=== PATIENT | male | born 1950 | race Caucasian/White ===

== ENCOUNTER 2025-01-07 13:47 | Inpatient (IN) | payer OTHER, SELFPAY ==
[2025-01-07] VITALS (7 sets, daily range): BP systolic 105–174; BP diastolic 73–119; BMI 27.8; BMI 27.4
--- NOTE | 2025-01-07 08:34 | ED.GENMED ---
History of Present Illness
General
Chief Complaint: Breathing Problem
Source: patient
Exam Limitations: none
Time Seen by Provider: 01/07/25 08:16
History of Present Illness
History of Present Illness:
See MDM
Past History
Past History
ED Past Medical History: None
ED Past Surgical History: None
Social History
Tobacco: Former smoker
Alcohol: None
Phy Exam
Physical Exam
Physical Exam:
See MDM
Scores
Heart Failure Risk
Heart Failure Risk Score: Not Applicable
Course
Orders/Labs/Results
Orders:
Orders
01/07/25 07:54
EKG [Electrocardiogram (*1)] Urgent
Reason for Study: Shortness of Breath
01/07/25 07:55
EKG- Treatment ONCE
01/07/25 08:34
CT Chest PE Study Urgent
Comment:
Reason For Exam: SOB, R leg swelling
US Periph Venous LOWER Ext RT Urgent
Comment:
Reason For Exam: R calf swelling and pain
01/07/25 08:37
Complete Blood Count/With Diff Urgent
Comprehensive Metabolic Panel Urgent
NT-proBNP Urgent
PTT Urgent
Prothrombin Time Urgent
Troponin I Urgent
Abnormal Lab Results
01/07/25
08:37
RBC 3.58 L 10^6/uL
(4.70-6.10)
Hgb 11.2 L g/dL
(13.0-18.0)
Hct 32.7 L %
(39.0-52.0)
MCH 31.3 H pg
(27.0-31.0)
Sodium 133 L mmol/L
(135-145)
Chloride 108 H mmol/L
(98-107)
Carbon Dioxide 19 L mmol/L
(22-30)
Glucose 119 H mg/dl
(70-99)
Total Bilirubin 1.4 H mg/dl
(0.2-1.3)
Total Protein 6.0 L g/dl
(6.3-8.2)
Albumin 3.3 L g/dl
(3.5-5.0)
01/07/25 08:37
01/07/25 08:37
Vital Signs
Initial and Last Documented VS:
Initial Vital Signs
Temp Pulse Resp Pulse Ox
98.6 F 63 20 100
01/07/25 07:49 01/07/25 07:49 01/07/25 07:49 01/07/25 07:49
Last Documented Vital Signs
Temp Pulse Resp BP Pulse Ox
98.6 F 77 18 145/96 100
01/07/25 07:49 01/07/25 10:42 01/07/25 10:42 01/07/25 10:42 01/07/25 10:42
MDM/Problems Addressed
Differential Diagnosis Includes:
HPI and MDM Narrative:
74-year-old male presenting with shortness of breath with exertion. This has been ongoing for the past 2 weeks or so. This was preceded by over a swelling and skin changes to his right leg. He noted that his right calf and foot have become
purple. It is mildly uncomfortable. He is denying any chest pain at rest and denies shortness of breath lying flat.
On exam, patient has significant right calf the skin is hard and pulses are nonpalpable. However, the distal foot is warm. The DP pulse is auscultated by Doppler
Given his history, will obtain CT PE rule out ultrasound rule out PE. I suspect the patient will require admission regardless given his exertional symptoms. Initial EKG is nonischemic
Physical exam
General: Well appearing and non-toxic
HEENT: protecting airway
Neck: appears supple
CV: No evidence of cyanosis. Regular rate and rhythm
Resp: No accessory muscle use. Lungs clear
Abd: Non-distended
Extremities: Edema and ecchymotic skin changes to the right calf and right foot. DP pulses +2 to right foot with use of
Neuro: alert
Psych: Normal affect
Skin: Venous stasis to right calf
Problems Addressed including Acute and Chronic Conditions affecting care:
1. Right calf swelling and pain
Acuity: acute
Prognosis: stable
Details: Pulses intact. Will obtain ultrasound rule out DVT
2. Shortness of breath with exertion
Acuity: acute
Prognosis: stable
Details: EKG without ischemic changes. Will obtain troponin and BNP. Will obtain CT to rule out PE
Updates
Ultrasound negative for DVT. CT shows no evidence of PE but there is concern for emphysematous changes. Unsure if his symptoms are cardiac related. His BNP is elevated no pulmonary edema noted. Troponin is negative. Will admit for further workup
Differential Diagnosis (but not limited to): Acute coronary syndrome, pulmonary embolism, DVT
Testing considered: Chest x-ray
Drug therapy (if applicable): OTC meds, please see d/c instruction regarding Rx drugs
Amount and/or Complexity of Data Reviewed
Clinical info obtained from: Patient
External data reviewed: N/A
Labs I independently reviewed (but not limited to): Troponin normal, BNP elevated
Radiology: The CT scan was personally and independently reviewed. In addition, official CT report reviewed.
Pulse Ox: not hypoxic
EKG independently reviewed: Sinus rhythm, normal axis, no STEMI
Material Handler 2Nd Shift: Sinus rhythm
Critical Care: N/A
Risk of Complication:
Social Determinants of health: Good social support
Discussed with other providers: Hospitalist
Escalation of Care includes Admit/Obs: Given exertional dyspnea, will admit for further workup
Occasional wrong word or 'sound a like' substitutions may have occurred due to the inherent limitations of voice recognition software. Read the chart carefully and recognize, using context, where substitutions have occurred.
*Pulse Oximetry
SaO2: 100
Oxygen Mode of Delivery: Room air
Patient hypoxic: no
*Critical Care Note
Total Time (30-74mins, 75-104mins- exclusive of procedures): Not Applicable
ED Attending Note
-
Portions of this chart may have been created with voice recognition software.� Occasional wrong word or��sound alike� substitutions may have occurred due to the inherent limitations of voice recognition software.
Discharge Plan
Departure
Patient Disposition: Admit
Date of Disposition: 01/07/25
Time of Disposition: 12:37
Admit to: Med/Surg
Presentation/result/management discussed w/ accepting MD/DO: Hospitalist
Discharge Problem:
Exertional dyspnea
Prescriptions:
No Action
No Current Medications
0
Referrals:
NONE,* [Family Provider, Internal Medicine]
Interventions
Interventions:
*Risk Screen - Suicide Last Done: 01/07/25 07:49
*General Assessment Last Done: 01/07/25 08:41
*Neglect/Abuse Screening Last Done: 01/07/25 07:49
*ED- Fall Risk Assessment Last Done: 01/07/25 08:41
*ED COVID-19 Vaccine History Last Done: 01/07/25 08:41
ED- Cardiac Assessment Last Done: 01/07/25 08:47
ED- Pulmonary Assessment Last Done: 01/07/25 08:47
ED-Skin Assessment Last Done: 01/07/25 08:47
Discharge Date and Time
Print Language: COMORAN
[2025-01-07 08:50] LABS: Hematocrit 32.7 % (39.0-52.0); Hemoglobin 11.2 g/dL (13.0-18.0); Mean Corp Hgb Conc. 34.3 g/dL (33.0-37.0); Mean Corpuscular Volume 91.3 fL (80.0-94.0); Nucleated Red Blood Cells % 0 % (-); Platelet Count 242 10^3/uL (130-400); Red Cell Dist. Width 13.8 % (11.5-14.5)
[2025-01-07 09:05] LABS: INR 1.09; PT 14.6 Sec (11.4-14.6)
[2025-01-07 09:06] LABS: APTT 34.8 Sec (23.4-35.0)
[2025-01-07 09:16] LABS: Troponin I < 0.012 ng/ml
[2025-01-07 09:22] LABS: ALT (SGPT) 18 U/L (0-50); AST (SGOT) 20 U/L (17-59); Albumin 3.3 g/dl (3.5-5.0); Alkaline Phosphatase 81 U/L (38-126); Blood Urea Nitrogen 12 mg/dl (9-20); Calcium 8.7 mg/dl (8.4-10.2); Carbon Dioxide 19 mmol/L (22-30); Chloride 108 mmol/L (98-107); Estimated Creatinine Clearance 80 ml/min; Glucose 119 mg/dl (70-99); Potassium 4.6 mmol/L (3.5-5.1); Sodium 133 mmol/L (135-145); Total Protein 6.0 g/dl (6.3-8.2); eGFR > 60.00
--- NOTE | 2025-01-07 12:48 | HPS.HSE ---
Family Physician
-
Family Physician: * NONE
Chief Complaint
-
SOB/LARSON
BL LE edema
RLE erythema
History of Present Illness
HPI: 74-year-old male, no known past medical history as he does not see a PCP, presented with shortness of breath and dyspnea on exertion for 2 weeks. He also has BL LE edema with RLE erythema ongoing for 1 month.
In the ED, he was evaluated for right leg DVT and PE; VTE was ruled out.
Admitted for likely acute CHF, unclear type
Medical History
Past Medical History
Past Medical History: Reports Other
Additional Past Medical History:
unknown as pt does not see PCP
Past Surgical History: Reports Other
Additional Past Surgical History:
?R leg skin graft
Social History
Tobacco: Former Smoker (quit a few months ago)
Alcohol: Daily (4-5 cans of beer per pt)
Personal:
Living: With Family
Family History
Family History: Not pertinent
Allergies / Home Medications
Allergies reflects when Allergies were last updated in [facility].
Home Medications with original date entered in [facility]
Allergy/Medication List:
Allergies
Allergy/AdvReac Type Severity Reaction Status Date / Time
No Known Allergies Allergy Unverified 01/07/25 07:49
Home Medications
No Meds [No Current Medications] 01/07/25
Review of Systems
-
Respiratory: Reports See HPI and Trouble Breathing (LARSON)
Skin: Reports Rash (R leg for 1 month)
Physical Exam
Vital Signs
Vital Signs
Temp Pulse Resp BP Pulse Ox
37.0 C 77 18 145/96 100
01/07/25 07:49 01/07/25 10:42 01/07/25 10:42 01/07/25 10:42 01/07/25 10:42
Physical Exam
General: Well Developed, Well Nourished, No Apparent Distress, Comfortable and Conversant
HEENT: NormoCephalic, Moist mucous membranes and Atraumatic
Respiratory: Clear and Non Labored Respirations; No Accessory Resp Muscle Use
Cardiac: S1/S2 and Regular Rhythm; No Murmur or Rub
GI: Soft, Non Tender, Non Distended and Normal Bowel Sounds; No Organomegaly
Rectal: Deferred by Provider
Musculoskeletal: No Clubbing, No Cyanosis, Edema, Left Lower Extremity and Edema, Right Lower Extremity
Skin: Warm and Rash (RLE)
Neuro: Awake and Alert
Psych: Calm and Intact Judgment/Insight
Laboratory Results
-
01/07/25 08:37
01/07/25 08:37
Laboratory Results
PT 14.6 Sec (11.4-14.6) 01/07/25 08:37
INR 1.09 01/07/25 08:37
APTT 34.8 Sec (23.4-35.0) 01/07/25 08:37
Total Bilirubin 1.4 mg/dl (0.2-1.3) H 01/07/25 08:37
AST 20 U/L (17-59) 01/07/25 08:37
ALT 18 U/L (0-50) 01/07/25 08:37
Alkaline Phosphatase 81 U/L (38-126) 01/07/25 08:37
Troponin I < 0.012 ng/ml 01/07/25 08:37
Data Reviewed
-
CT Scan: Report Reviewed by me
Ultrasound: Report Reviewed by me
Lab Data: Labs Reviewed by me
Impression/Plan
-
HPI: 74-year-old male, no known past medical history as he does not see a PCP, presented with shortness of breath and dyspnea on exertion for 2 weeks. He also has BL LE edema with RLE erythema ongoing for 1 month.
In the ED, he was evaluated for right leg DVT and PE; VTE was ruled out.
Admitted for likely acute CHF, unclear type
A/P:
# Likely acute CHF, unclear type
proBNP 1400, troponin negative
Start IV Lasix 40 mg daily
Check echo
Cardiology consult
# Right leg erythema, ?chronic venous dermatosis
ID CS
Wound care consult
Right lower extremity DVT ruled out on ultrasound
Not able to appreciate R dorsalis pedis pulse, check RLE arterial US
# Mild hyponatremia
Sodium level 133, continue to monitor
DVT ppx: Lovenox SQ
FC
--- NOTE | 2025-01-07 13:12 | CM ---
Patient seen in ED with neighbor present. Patient states that he lives with his and 2 sons. Patient is primary caregiver for s/p CVA. Patient stated they live in a 2 story home and he has no DME at home for himself. Patient works as
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 [facility] [address] In [place] and has no PCP at this time. Patient has not been in the hospital for 'decades'. Patient is thinking about going to his son or his 's PCP but has
not yet made appointment. Patient plan is for discharge home with no needs at this time. CM will continue to follow for discharge planning needs.
Plan; home with family watch for VN needs/ will need PCP at discharge.
--- NOTE | 2025-01-07 13:54 | CON.ID ---
Consultation
-
Date/Time Consultation Requested: 01/07/2025 1300
Date/Time Consultation Performed: 01/07/2025 1308
Requesting Provider: Dr. Devlin
Performing Provider: Dr. Jacobo
Reason for Consultation: Right lower extremity edema and discoloration
Chief Complaint / Past History
History of Present Illness
Joey Gunter is a 74-year-old man being evaluated at the request of Dr. Koenig in regards to right lower extremity swelling and discoloration. History is obtained from chart review, along with patient interview.
The patient denies any prior significant medical history, and reports that he rarely, if ever, sees a physician. He notes that approximately 1-1/2 months ago (or possibly longer) he started to develop some soreness and swelling on his right lower
extremity. Over that same time he has noted that it is grown progressively more dark in color. He denies any trauma to the leg. He denies any fevers or chills. He denies any groin pain or erythema spreading up his medial thigh. He notes a
throbbing pain in the leg, especially when dependent. He reports occasional shortness of breath, which has been slightly worse over the past 2 weeks.
Past History
Past Medical History: None
Past Surgical History: None
Allergy History:
No Known Allergies Allergy (Unverified 01/07/25 07:49)
Medications Reviewed: Yes
Current Antibiotics:
None
Social History
Tobacco: Former Smoker ([id number])
Alcohol: Daily (4 beers)
Drug: None
Personal:
Living: With Family
Employment: Employed
Family History
Family History: Not Pertinent
Review of Systems
Vital Signs
Temp Pulse Resp BP Pulse Ox
98.6 F 73 25 145/96 99
01/07/25 07:49 01/07/25 13:30 01/07/25 13:30 01/07/25 10:42 01/07/25 13:30
Physical Exam
Physical Exam
Constitutional: No Acute Distress, Comfortable, Chronically Ill and Non-toxic
Head: Normocephalic
Eyes: Pupils Equal, Pupils Round, No Conjunctival Hemorrhage and Sclera Anicteric
Oral: Poor Dentition, No Thrush and No Ulcers
Lymph Nodes: Negative Lymphadenopathy
Cardiovascular: Regular Rate and S1/S2; Negative S3/S4 or Murmur
Pulmonary: Clear; Negative Wheezes, Rales or Rhonchi
Gastrointestinal: Soft, Non Tender, Non Distended, Normal Bowel Sounds, No Rebound and No Guarding
Extremities: Other (Right leg with dark erythema and mild warmth from toes to knee area. No actual knee effusion. Edema is tense.)
Skin: Warm and Dry; Negative Rash or Jaundice
Neurological: Awake and Alert
Psychological: Calm
.
Lab / Diagnostic Study Results
01/07/25 08:37
01/07/25 08:37
Abs Immat Gran (auto) 0.0 10^3/uL (0-0.05) 01/07/25 08:37
Absolute Neuts (auto) 3.9 10^3/uL (1.4-6.5) 01/07/25 08:37
Absolute Lymphs (auto) 1.3 10^3/uL (1.2-3.4) 01/07/25 08:37
Absolute Monos (auto) 0.4 10^3/uL (0.1-0.6) 01/07/25 08:37
Absolute Basos (auto) 0.0 10^3/uL (0-0.2) 01/07/25 08:37
Immature Gran % 0.5 % (0-0.5) 01/07/25 08:37
Neutrophils % 68.1 % (42.2-75.2) 01/07/25 08:37
Lymphocytes % 22.7 % (20.5-51.1) 01/07/25 08:37
Monocytes % 6.3 % (1.7-9.3) 01/07/25 08:37
Eosinophils % 1.9 % (0-6) 01/07/25 08:37
Basophils % 0.5 % (0-2) 01/07/25 08:37
PT 14.6 Sec (11.4-14.6) 01/07/25 08:37
INR 1.09 01/07/25 08:37
Microbiology Results
Imaging:
01/07/2025 Duplex ultrasound right lower extremity: The right lower extremity common femoral, femoral, and popliteal vein are patent, , demonstrating normal compression with transducer pressure, as well as normal spontaneous and phasic waveforms.
Limited visualization of the calf veins secondary to swelling/edema.
01/07/2025 CT chest (PE study): Respiratory motion degradation especially in the lung bases, secondary to misregistration artifact, rendering evaluation beyond the proximal subsegmental divisions are nondiagnostic. Otherwise, no pulmonary embolism
identified. Mild emphysematous lung changes. Chronic appearing pleuroparenchymal scarring in the posterolateral right lower lobe. No evidence of pneumonia.
Assessment / Plan
Right lower extremity edema
- Not clear whether due to structural issue, or whether there is a infectious component.
- no other clinical signs of infection (no elevated wbc, no left shift, no fevers)
Shortness of breath
Recommendations:
Would continue to observe off antibiotics for now.
Arterial ultrasound and ABIs ordered.
Patient may also require additional imaging of the right lower extremity with either MRI or CT.
Lower extremity elevation.
Hold on any compressive modalities until arterial ultrasound obtained.
Care Review
Plan reviewed with: Physician (Hospitalist)
--- NOTE | 2025-01-07 13:57 | CON.CAR ---
Addendum entered and electronically signed by Connor Santana MD 01/07/25 17:45:
Patient seen and examined with collaboration with K[employer] TRANSFER OPERATOR; agree with below.
-74 year old male with chronic smoking history (quit a few months ago), chronic daily alcohol use, and noncompliant with medical follow-up (has not seen any provider in over 25 years) presenting with right lower extremity swelling and discoloration.
- High clinical concern for peripheral vascular disease/ischemia.
- Priority consult placed to vascular surgery; appreciate input.
- Patient does not appear to have overt CHF; will obtain an echocardiogram to thoroughly assess cardiac function.
- quality assurance monitor body.
- Will follow.
Original Note:
Consultation
Consultation Request
Date/Time Consultation Requested: 01/07/25 2899
Date/Time Consultation Performed: 01/07/25 1401
Requesting Provider: Dr. Santana
Performing Provider: Anais SHINE for Dr. Santana
Reason for Consultation: CHF
Medical History
-
Chief Complaint: RLE discoloration/swelling
History of Present Illness:
74 y/o male with no known PMH. He is a former smoker (quit a few months ago) and has daily ETOH (about 4-5 beers). He has not seen a medical provider in about 25 years and is not on any medications. He is here for evaluation because his RLE is
discolored and swollen. No evidence for DVT. Arterial studies pending. He thinks that has been present for about 1.5 months. We are consulted for CHF, as he also reports LARSON for about 1 week. He is in no distress at the time of my assessment. He
denies any CP.
Past Medical History
Past Medical History: None
Social History
Tobacco: Former Smoker (quit a few weeks ago)
Alcohol: Daily (4- 5 beers per day)
Family History
Family History: Reviewed & Not Pertinent
Allergies / Home Medications
Allergy/AdvReac Type Severity Reaction Status Date / Time
No Known Allergies Allergy Unverified 01/07/25 07:49
�Medication �Instructions �Recorded �Confirmed �Type
No Meds [No Current Medications] 01/07/25 01/07/25 History
Review of Systems
-
History Source: Patient
All other systems: Negative unless noted
Constitutional: Weight Loss (lost 40 lbs on purpose, now stable)
Respiratory: Trouble Breathing (LARSON)
Musculoskeletal: Edema (BLE )
Skin: Other (RLE discoloration )
Physical Exam
Vital Signs
Temp Pulse Resp BP Pulse Ox
98.6 F 73 25 145/96 99
01/07/25 07:49 01/07/25 13:30 01/07/25 13:30 01/07/25 10:42 01/07/25 13:30
Lab Results
01/07/25 08:37
01/07/25 08:37
Troponin I < 0.012 ng/ml 01/07/25 08:37
[id number] Pept 1420 pg/ml 01/07/25 08:37
Physical Exam
General: Well Developed, Well Nourished and No Apparent Distress
HEENT: Normocephalic and Anicteric
Respiratory: Clear and Non Labored Respirations
Musculoskeletal: Edema (mild BLE edema)
Skin: Warm, Dry and Other (RLE purple and hard and scaled)
Neuro: AO x 3
Psych: Calm
Impression / Plan
-
RLE discoloration/swelling:
-arterial studies pending. Hx smoking. Does have Doppler pulse and warm to touch. No pain. Recommend vascular c/s.
-ID consulted as well per IM note
LARSON:
-patient is former smoker, so perhaps some pulmonary component. However, BNP is elevated 1420, and there may be a component of acute CHF as well, type unknown. Can monitor response to IV lasix (which requires intensive monitoring) and obtain echo.
Of note, he does deny any orthopnea, PND, CP, weight gain.
Elevated BP:
-no known hx HTN
-monitor with diuresis
Hx smoking:
-quit a few months ago
-continue to remain smoke free
Daily ETOH 4-5 beers:
-education on decreasing use appropriate prior to d/c
Data:
CT scan: Respiratory motion degradation especially in the lung bases, secondary to misregistration artifact, rendering evaluation beyond the proximal subsegmental divisions are nondiagnostic. Otherwise, no pulmonary embolism identified. Pulmonary
artery branching order level of the most proximal pulmonary embolism: N/A Mild emphysematous lung changes. Chronic appearing pleuroparenchymal scarring in the posterolateral right lower lobe. No evidence of pneumonia.
Peripheral u/s: No evidence of right lower extremity femoral-popliteal deep venous thrombosis. Limited visualization of the calf veins secondary to swelling/edema.
Data Reviewed
-
EKG: Tracing Personally Visualized and interpreted (NSR 82 BPM, NS ST abnormality)
CT Scan: Report Reviewed by me (CT scan: Respiratory motion degradation especially in the lung bases, secondary to misregistration artifact, rendering evaluation beyond the proximal subsegmental divisions are nondiagnostic. Otherwise, no pulmonary
embolism identified. Pulmonary artery branching order level of the most proximal pu)
Labs: Labs Reviewed by me
--- NOTE | 2025-01-07 14:38 | WOUNDNOTE ---
R ANTERIOR LOWER LEG WITH FLASH
--- NOTE | 2025-01-07 14:38 | WOUNDNOTE ---
R DORSAL FOOT WITH FLASH
--- NOTE | 2025-01-07 14:39 | WOUNDNOTE ---
R MEDIAL POSTERIOR LEG
--- NOTE | 2025-01-07 14:40 | WOUNDNOTE ---
WON RN note: Patient admitted with exertional dyspnea.
See H&P for complete history. Lives by self.
PMH: HPI: 74-year-old male, no known past medical history as he does not see a PCP, presented with shortness of breath and dyspnea on exertion for 2 weeks. He also has BL LE edema with RLE erythema ongoing for 1 month.
Wound Location and type/assessment: Patient admitted with: R leg discoloration, scattered red mixed with dark purple and edema. No complaint of pain. Skin on R leg warm and very dry, + palpable pedal pulse and no open wounds. I&D consult pending.
Patient able to turn self and lift legs without difficulty, sacrum and heels intact. Has scattered bruising on arms and hands. Patient reports he got bruises from accidentally banging into something. Denies any trauma to R leg or recent bug bites.
Appetite: Good
Pressure redistribution devices in place: Can be on Accumax, patient is ad delta.
Plan: Will order mineral oil for dry skin on R leg and follow along peripherally and assist as needed.
Will confirm orders with hospitalist and updated nurse.
Updated care plan and will follow as needed.
Note to case management of equipment requested for discharge:TBD
--- NOTE | 2025-01-07 15:31 | EDRN ---
this RN called the receiving unit and notified them that paper report was going to be tubed up
--- NOTE | 2025-01-07 15:59 | CON.VAS ---
Consultation
Consultation Request
Date/Time Consultation Performed: 01/07/25 1600
Requesting Provider: Hospitalist
Performing Provider: Jerrica Raymond NP-C for Nathanael Castro M.D.
Reason for Consultation: Right lower extremity swelling and discoloration
Medical History
-
Chief Complaint: Right lower extremity swelling with discoloration and shortness of breath
History of Present Illness:
This is a 74-year-old male with no significant past medical history who presented to [facility] today with reports of worsening shortness of breath/dyspnea on exertion over the past 2 weeks with accompanying right lower extremity edema/'purple
'discoloration of right lower extremity over the past 1 to 2 months. Patient states that roughly 2 months ago he noted purple discoloration over his right ankle, which over time extended to calf and then was accompanied by swelling from his ankle
to above-knee making it hard to bend his knee. Endorses difficulty with ambulation but purely because of limited movement from swelling. He denies any accompanying pain, paresthesia, or motor dysfunction. He denies claudication or rest pain. Notes
no pain in his foot. No discoloration in the foot. He does note slight discoloration of the left foot recently as well. He denies prior vascular surgical intervention or seeing a vascular surgeon.
Past Medical History
Past Medical History: None (Patient denies significant past medical history and has not seen a physician or healthcare center in roughly 25+ years)
Past Surgical History: None
Social History
Tobacco: Former Smoker (Significant past smoking history, patient is unclear what age she began smoking but states he is a 'lifelong smoker 'but quit roughly 3 months ago)
Alcohol: Daily (4-5 cans of beer a day)
Personal:
Allergies / Home Medications
Allergy/AdvReac Type Severity Reaction Status Date / Time
No Known Allergies Allergy Unverified 01/07/25 07:49
�Medication �Instructions �Recorded �Confirmed �Type
ibuprofen 200 mg tablet 400 mg PO Q6HPRN PRN mild pain 01/07/25 01/07/25 History
Review of Systems
-
History Source: Patient
Constitutional: Reports No Symptoms
EENT: Reports No Symptoms
Respiratory: Reports Other (shortness of breath )
Cardiac: Reports No Symptoms
Vascular: Denies Leg Pain / Claudication, Numbness or Tingling
Abdomen/GI: Reports No Symptoms
: Reports No Symptoms
Musculoskeletal: Reports Edema (RLE swelling for past 1.5-2 months)
Skin: Reports Other (purple discoloration )
Neurological: Reports No Symptoms
Endocrine: Reports No Symptoms
Physical Exam
Vital Signs
Temp Pulse Resp BP Pulse Ox
98.6 F 87 23 105/73 99
01/07/25 15:15 01/07/25 15:27 01/07/25 15:27 01/07/25 15:15 01/07/25 15:27
Lab Results
01/07/25 08:37
01/07/25 08:37
Troponin I < 0.012 ng/ml 01/07/25 08:37
Tvo-Y-Hzncrtzmthz Pept 1420 pg/ml 01/07/25 08:37
Physical Exam
General: No Apparent Distress
HEENT: Normocephalic, Anicteric and Atraumatic
Respiratory: Non Labored Respirations
Cardiac: Negative JVD
GI: Soft, Non Tender and Non Distended
Musculoskeletal: Edema (+3 RLE edema )
Skin: Warm (BL feet warm) and Other (RLE calf into upper thigh with ecchymotic discoloration)
Neuro: AO x 3
Psych: Calm
Pulses: Bilateral Femoral: +2, Bilateral Popliteal: +2, Bilateral Dorsalis Pedis: Doppler and Bilateral Posterior Tibial: Doppler
Assessment / Plan
-
Assessment: 74-year-old male presenting to ED with reports of worsening shortness of breath and worsening right lower extremity swelling with accompanying purple discoloration over the past 1 to 2 months.
Plan:
Will obtain CT aorta with runoff which includes delayed venous phase to rule out any form of extensive DVT or arterial insufficiency, suspect chronic hematoma could also be contributing to swelling/ecchymotic discoloration CTA will also be able to
further delineate this diagnosis.
I performed this shared service with the attending. I evaluated the patient [id number] and have entered clinical documentation as shown in the encounter note. I performed the following component(s):�history and physical exam. Note that medical
decision making is not final until attested by vascular attending.
--- NOTE | 2025-01-07 16:09 | W.PN.UPDATE ---
Update Note
Progress Note Update
Seen and examined in ER with GROUNDMAN/LINEMAN. See full consultation to follow. Asked to see the patient based on concerns regarding the right leg appearance by blocker metal base, Dr. Santana. Briefly 74-year-old male presented to the emergency room with symptoms
of shortness of breath. He also noted chronic right leg swelling and skin changes/discoloration to the right leg that have been come more prominent. He noted that the right calf initially appeared slightly discolored about a month ago. And it
progressed with progressive discoloration and swelling. However he denies any pain at any of the time. The only thing he notes is that he is able to walk but when he walks it feels slightly tight due to the swelling. But he has no real pain.
Prior to this he denied any claudication type symptoms. Notes no pain in his foot. No discoloration in the foot. He does note slight discoloration of the left foot recently as well. He notes that his right leg discoloration started as such as
well. No prior history of any lower extremity revascularizations. No personal history of DVTs. He does have a history of tobacco use having smoked 'my entire life' but quit a few months ago. Smoked about a pack every 3 days. Notes he drinks
beer daily. But denies drinking to the point of inebriation. He denies any trauma to the right lower extremity. No injuries that he is aware of.
On exam/he is awake and alert. He is in no acute distress. His breathing is unlabored. Abdomen is soft. Lower extremity with bilateral 2+ easily palpable femoral and popliteal pulses. Nonpalpable distal pulses but he does have good phasic
dopplerable DP and PT signals bilaterally, equal bilaterally. Both feet are warm, but actually the right foot is warmer than the left. The right foot itself is pink, anaid brisk capillary refill. The entire right calf and posterior to the knee area
are significantly edematous/swollen and woody to palpation. To palpation feels more so that it is in the subcutaneous space than the muscle compartments. Muscle compartments feel okay. He has no tenderness whatsoever to even deep palpation
throughout the calf. He has significant discoloration of the entire calf. Appears to be more ecchymotic type discoloration. Nonblanching. He does have some flaking of the skin of the right calf as well especially medially. However he has no
open ulcerations. He does have some streaking of the discoloration into the thigh medially and laterally on the right side. In the left foot he has slight lateral foot nonblanching petechial type discoloration. Motor and sensory function within
normal limits bilateral legs and feet.
Imaging reviewed. No evidence of DVT on his ultrasound. No evidence of PE on CT scan.
Plan/ Right lower extremity swelling/nonblanching ecchymotic discoloration. Appears actually like a subacute hematoma. However he denies any recent trauma. He is not on any blood thinning medicines. Does not appear to be acutely ischemic (based
on the fact that he has no pain in the leg or foot, he has good motor and sensory function, has good palpable femoral and popliteal pulses with good dopplerable DP and PT signals equal bilaterally, the foot itself is warm and pink without any
evidence of major discoloration or ischemia in the foot, tightness/swelling usually not associated with ischemia as well). While DVT could be in the differential, his ultrasound was negative. Would obtain CT scan to rule out pelvic DVT. And given
some concern for the discoloration would obtain arterial imaging with a CT as well to make definitively sure that this is not an ischemic problem. Therefore will obtain CTA aorta with runoff with delayed venous phase imaging. Findings and plan
communicated to hospitalist as well as blocker metal base.
[2025-01-07] MEDS: LASIX 40 MG IV (18:04)
--- NOTE | 2025-01-07 22:11 | W.PN.UPDATE ---
Update Note
Progress Note Update
I reviewed CTA imaging. Mild abdominal aortic atherosclerotic eccentric plaque that does not result in any stenosis. (Mild L EIA soft plaque with mild stenosis). Otherwise, no significant plaque or stenosis (namely in RIGHT LE - area of concern)
including runoff vessels. Therefore, no findings to suggest any arterial ischemic etiology. In addition, I don't see any evidence of pelvic vein thrombosis (pelvic DVT). There is diffuse swelling intra-compartmental of right calf compartments-
but i don't see a definitive hematoma. Clinically, he had no findings of compartment syndrome.
Uncelar etiology, but nothing from a surgical perspective to offer.
[2025-01-08 03:21] VITALS: BP 134/68
[2025-01-08 05:38] LABS: Hematocrit 28.7 % (39.0-52.0); Hemoglobin 9.8 g/dL (13.0-18.0); Mean Corp Hgb Conc. 34.1 g/dL (33.0-37.0); Mean Corpuscular Volume 92.0 fL (80.0-94.0); Platelet Count 216 10^3/uL (130-400); Red Cell Dist. Width 13.7 % (11.5-14.5)
[2025-01-08 06:00] VITALS: BMI 27.1
[2025-01-08 06:35] LABS: Blood Urea Nitrogen 14 mg/dl (9-20); Calcium 7.9 mg/dl (8.4-10.2); Carbon Dioxide 22 mmol/L (22-30); Chloride 103 mmol/L (98-107); Estimated Creatinine Clearance 72 ml/min; Glucose 97 mg/dl (70-99); Magnesium 2.0 mg/dl (1.6-2.3); Potassium 4.2 mmol/L (3.5-5.1); Sodium 130 mmol/L (135-145); eGFR > 60.00
[2025-01-08 07:51] VITALS: BP 155/81
[2025-01-08] MEDS: FOLVITE 1 MG PO (08:20)
[2025-01-08] MEDS: HYDROPHOR 1 APPLIC TOPICAL (08:21)
[2025-01-08] MEDS: LASIX 40 MG IV (08:21)
[2025-01-08 08:34] VITALS: BMI 27.1
--- NOTE | 2025-01-08 08:56 | W.PN.CD ---
Addendum entered and electronically signed by Connor Santana MD 01/08/25 10:23:
Went to see the patient in collaboration with LIBRARY MEDIA ASSISTANT; however, the patient stated that he was was not happy with Cardiology because we 'scared' him about the possible severity of his leg, and he essentially kicked me out of the room--refused examination
or further discussion.
- Can discontinue diuretic.
- No further cardiac recommendations at this time; patient will not follow-up with Cardiology as outpatient--additionally, he does not appear to have any overt active cardiac issues and the patient has not followed up with Doctors in decades and is
unlikely to start now.
- It was strongly recommended to the patient yesterday that he stop drinking alcohol and refrain from smoking, and he should see Doctors regularly; he was not too thrilled with those recommendations.
Original Note:
Today's Communication / Plan
-
stop IV lasix
Further w/u of RLE per primary
Impression / Plan
-
RLE discoloration/swelling:
-ID and vascular following. Fortunately, by imaging, there is no evidence for arterial ischemic etiology and no vascular surgery required.
-continued work-up and management per primary
LARSON:
-Echo was completely normal. No change with IV Lasix, breathing does not bother him much. Although BNP was mildly elevated, I actually do not suspect CHF here and rather pulmonary component in this patient with hx smoking, as well as anemia now
noted. Anemia/pulm w/u and management per primary. Will stop IV lasix.
Elevated BP:
-no known hx HTN
-monitor, can add BP meds if needed
Hx smoking:
-quit a few months ago
-continue to remain smoke free
Daily ETOH 4-5 beers:
-education on decreasing use appropriate prior to d/c
PVC's:
-no symptoms, normal EF, normal K+ and mag
-no runs
Data:
CT scan: Respiratory motion degradation especially in the lung bases, secondary to misregistration artifact, rendering evaluation beyond the proximal subsegmental divisions are nondiagnostic. Otherwise, no pulmonary embolism identified. Pulmonary
artery branching order level of the most proximal pulmonary embolism: N/A Mild emphysematous lung changes. Chronic appearing pleuroparenchymal scarring in the posterolateral right lower lobe. No evidence of pneumonia.
Peripheral u/s: No evidence of right lower extremity femoral-popliteal deep venous thrombosis. Limited visualization of the calf veins secondary to swelling/edema.
Physical Exam
Vital Signs/Labs
Vital Signs
Temp Pulse Resp BP Pulse Ox
98.7 F 67 14 155/81 100
01/08/25 07:51 01/08/25 08:21 01/08/25 07:51 01/08/25 08:21 01/08/25 07:51
01/07/25 01/08/25 01/09/25
06:59 06:59 06:59
Actual Weight 90.492 kg
01/08/25 05:16
01/08/25 05:16
PT 14.6 Sec (11.4-14.6) 01/07/25 08:37
INR 1.09 01/07/25 08:37
APTT 34.8 Sec (23.4-35.0) 01/07/25 08:37
Magnesium 2.0 mg/dl (1.6-2.3) 01/08/25 05:16
Triglycerides Cancelled 01/08/25 08:29
LDL Cholesterol, Calc Cancelled 01/08/25 08:29
VLDL Cholesterol, Calc Cancelled 01/08/25 08:29
HDL Cholesterol Cancelled 01/08/25 08:29
TSH Cancelled 01/08/25 08:29
01/07/25
08:37
Hzm-K-Fgoehubgsoc Pept 1420
LAB Results
01/07/25
08:37
Troponin I < 0.012
Physical Exam
Constitutional: No acute distress
EENT: Anicteric
Cardiovascular: Rhythm & rate is regular
Respiratory: Respiratory effort normal and Lungs clear to auscul.
Neuro/Psych: AO x 3
Other: Skin (RLE discoloration)
Data Reviewed
-
Date of Service: January 08, 2025
EKG: Other (SR, with PVC's- no symptoms, no runs.)
Labs: Labs Reviewed by me
--- NOTE | 2025-01-08 09:00 | PTOTSP ---
Attempted to see patient for evaluation - patient denied the need for PT eval, noting he has been getting to the bathroom independently while here and has had no changes in his level of function. Patient is aware our services are available if needs
arise, otherwise agreeable to PT signing off.
[2025-01-08 09:15] LABS: HDL Cholesterol 25 mg/dl; LDL Cholesterol, Calculated 79 mg/dl; Very Low Density Lipoprotein 21 mg/dl (0-30)
--- NOTE | 2025-01-08 09:37 | W.PN.HOSP.TC ---
Addendum entered and electronically signed by Debra Devlin MD 01/08/25 15:32:
Per case making machine operator, Xarelto cost is $150 for 3 months. Cost is acceptable by patient.
Patient was discharged with Xarelto 15 mg twice daily for 21 days, followed by 20 mg daily for 3 months.
Total DC time 45 minutes
Original Note:
Today's Communication/Plan
-
see A/P
Assessment / Plan
Assessment / Plan
HPI: 74-year-old male, no known past medical history as he does not see a PCP, presented with shortness of breath and dyspnea on exertion for 2 weeks. He also has BL LE edema with RLE erythema ongoing for 1 month.
In the ED, he was evaluated for right leg DVT and PE; VTE was ruled out.
Admitted for likely acute CHF, unclear type
A/P:
# Likely acute diastolic CHF
proBNP 1400 on admission,
troponin negative
s/p IV Lasix 40 mg daily, now off
Echo: EF 65-70%. Normal regional wall motion. Enlarged right ventricular size. Normal right ventricular systolic function. No significant valvular disease.
Cardiology on board
# Right leg erythema, ?chronic venous dermatosis vs DVT
ID on board, recc to observe off Abx
Wound care consulted
Right lower extremity DVT ruled out on ultrasound, however CT Angio showed chronic thrombosis of the right popliteal vein.
d/w Heme Dr Mcdonough, recc to treat chronic thrombosis with AC given unclear when clot was started and symptomatic.
Start therapeutic Lovenox with Coumadin bridging (CM already informed that Eliquis is not covered, checking Xarelto)
Daily INR
Of note, vascular consulted, felt no findings to suggest any arterial ischemic etiology
# Mild hyponatremia
Sodium level 130 today, continue to monitor
DVT ppx: Lovenox SQ therapeutic dose with Coumadin bridging
FC
DW family friend at bedside
total time spent 51 min
Anticipated Discharge: > 48 hours
Subjective/Interval History
-
Date of Service: January 08, 2025
Objective Data
-
Labs:
Laboratory Results
01/08/25
05:16
WBC 6.0
Hgb 9.8 L
Hct 28.7 L
Plt Count 216
Sodium 130 L
Potassium 4.2
Chloride 103
Carbon Dioxide 22
BUN 14
Creatinine 1.0
Glucose 97
Calcium 7.9 L
Vital Signs:
Vital Signs
Temp Pulse Resp BP Pulse Ox
37.1 C 67 14 155/81 100
01/08/25 07:51 01/08/25 08:21 01/08/25 07:51 01/08/25 08:21 01/08/25 07:51
I&O
01/07/25 01/08/25 01/09/25
06:59 06:59 06:59
Intake Total 960 / 960
Balance 960 / 960
Review of Systems
-
History Source: Patient
All other systems: Reviewed and negative
Physical Exam
-
General: Well Developed, Well Nourished, No Apparent Distress, Comfortable and Conversant; Negative Respiratory Distress
HEENT: Normocephalic, Atraumatic, Nose Appears Normal and Ears Appear Normal; Negative Oxygen
Respiratory: Clear to Auscultation and Non Labored Respirations; Negative Accessory Resp Muscle Use
Cardiac: Regular Rhythm and S1/S2
GI: Soft, Nontender, Nondistended and Normal Bowel Sounds
Skin: Dry and Rash (RLE erythema )
Neuro: Awake, Alert, Oriented, AO x 3 and Nonfocal/Grossly Intact
Psych: Calm and Intact Judgement/Insight
Data Reviewed
-
CT Scan: Report Reviewed by me
Ultrasound: Report Reviewed by me
Labs: Labs Reviewed by me
--- NOTE | 2025-01-08 10:26 | W.PN.ID1 ---
Date of Service
Date of Service: January 08, 2025
Today's Communication
Sign off
Assessment / Plan
Right lower extremity edema
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
Shortness of breath
Recommendations:
Continue off antibiotics.
Lower extremity elevation.
Low suspicion for infection at this point.
Little more to offer from Infectious Diseases standpoint.
Will see again at your request.
Chief Complaint
-: Other (Right lower extremity discoloration)
Subjective / Review of Systems
Patient seen and examined. Reports no right lower extremity discomfort at this time. No fevers or chills.
Review of Systems: No Fever and No Chills
Vital Signs / Physical Exam
Vital Signs
Vital Signs
Temp Pulse Resp BP Pulse Ox
98.7 F 67 14 155/81 100
01/08/25 07:51 01/08/25 08:21 01/08/25 07:51 01/08/25 08:21 01/08/25 07:51
Physical Exam
Constitutional: No Acute Distress, Comfortable and Cachetic
Eyes: Sclera Anicteric
Cardiovascular: S1/S2; Negative S3/S4
Pulmonary: Non Labored
Gastrointestinal: Soft and Non Tender
Extremities: Edema ('woody') and Erythema (Dark erythema with diffuse ecchymotic areas)
Skin: Warm and Dry
Neurological: Awake and Alert
Objective Data
Lab Data
Lab Results
01/08/25 05:16
01/08/25 05:16
PT 14.6 Sec (11.4-14.6) 01/07/25 08:37
INR 1.09 01/07/25 08:37
APTT 34.8 Sec (23.4-35.0) 01/07/25 08:37
Estimated Creat Clear 72 ml/min 01/08/25 05:16
Total Bilirubin 1.4 mg/dl (0.2-1.3) H 01/07/25 08:37
AST 20 U/L (17-59) 01/07/25 08:37
ALT 18 U/L (0-50) 01/07/25 08:37
Alkaline Phosphatase 81 U/L (38-126) 01/07/25 08:37
Most recent labs reviewed.
Imaging:
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 Moderate calcific atherosclerotic plaque in the abdominal aorta. Moderate to severe asymmetric subcutaneous
edema and soft tissue swelling in the right distal thigh, knee, lower leg, and foot. 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 Mild calcific atherosclerotic plaque in the right common and external iliac arteries. No CTA evidence for
large vessel arterial stenosis or occlusion in the right lower extremity. Three-vessel arterial runoff to the level of the right foot.
01/07/2025 Duplex ultrasound right lower extremity: The right lower extremity common femoral, femoral, and popliteal vein are patent, , demonstrating normal compression with transducer pressure, as well as normal spontaneous and phasic waveforms.
Limited visualization of the calf veins secondary to swelling/edema.
01/07/2025 CT chest (PE study): Respiratory motion degradation especially in the lung bases, secondary to misregistration artifact, rendering evaluation beyond the proximal subsegmental divisions are nondiagnostic. Otherwise, no pulmonary embolism
identified. Mild emphysematous lung changes. Chronic appearing pleuroparenchymal scarring in the posterolateral right lower lobe. No evidence of pneumonia.
Care Review
Plan reviewed with: Physician (Vascular Sx)
[2025-01-08 10:49] LABS: TSH 1.88 uIU/ml (0.47-4.68)
[2025-01-08] MEDS: LOVENOX 80 MG SC (11:03)
[2025-01-08 11:29] LABS: Glycohemoglobin (HgbA1c) 4.7 % (4.0-5.6)
[2025-01-08 11:34] VITALS: BP 137/72
--- NOTE | 2025-01-08 15:26 | W.DCSUMMARY ---
Discharge Summary
Discharge Data
Date of Admission: 01/07/25
Date of Discharge: 01/08/25
-
Pending Results: No
Hospital Course
Principal Diagnosis:
Likely acute mild diastolic CHF
Right leg erythema, secondary to right popliteal deep vein thrombosis versus chronic venous dermatosis
Chronic Diagnoses:�
Unknown as patient does not see any doctor
Consultations:�
Infectious disease
Cardiology
Vascular surgery
Curb sided hematology
Procedures:�
None
Clinical course:�
This is a 74-year-old male, no known past medical history as he does not see a PCP, presented with shortness of breath and dyspnea on exertion for 2 weeks.
He also has BL LE edema with RLE erythema ongoing for 1 month.
Problem 1:
Likely acute diastolic CHF.
proBNP 1400 on admission, but troponin negative.
He did receive short course IV Lasix 40 mg x 2 days while in the hospital. No further Lasix per cardiology.
His Echo was largely unrevealing: EF 65-70%. Normal regional wall motion. Enlarged right ventricular size. Normal right ventricular systolic function. No significant valvular disease.
Problem 2:
Right leg erythema, secondary to right popliteal deep vein thrombosis versus chronic venous dermatosis.
This was seen and evaluated by ID who recommended to observe off antibiotic.
This was also seen and evaluated by vascular surgery who felt arterial ischemia is less likely.
Although his right lower extremity ultrasound ruled out DVT, however his CT Angio showed chronic thrombosis of the right popliteal vein.
Per discussion with senior software architect Dr Mcdonough, it was recommended that he start treatment for the chronic thrombosis with anticoagulation.
His insurance does not cover for Eliquis, hence he was discharged with Xarelto at 15 mg twice daily for 21 days, followed by 20 mg daily for 3 months.
He can check repeat ultrasound in 4 to 6 weeks.
Discharge Plan
-
Patient Disposition: Home (Routine Discharge)
Discharge Diagnosis/Procedures: Likely mild acute diastolic heart failure (proBNP 1400 on admission);
Right leg erythema with CT Angio showed chronic thrombosis of the right popliteal vein.
Condition: Fair
Diet: As tolerated, Low Cholesterol, Low Fiber and Low Sodium
Additional Diets: Avoid drinking alcohol
Activity: As tolerated
Driving Restrictions: As prior to admission
Blood Work: CBC in 1 week
Others Tests: R leg venous ultrasound in 4-8 weeks with your PCP
Referrals:
NONE,* [Family Provider, Internal Medicine] - in less than 1 week
Additional Discharge Medication Instructions: take Xarelto 20 mg twice daily for 3 weeks, then 20 mg at night for at least 3 months
Prescriptions:
New
Xarelto 15 mg tablet
15 mg PO BID 21 Days Qty: 42 0RF
Xarelto 20 mg tablet
20 mg PO QPM Qty: 90 0RF
Rx Instructions:
AFTER 15 mg twice daily
Continued
ibuprofen 200 mg Tablet
400 mg PO Q6HPRN PRN (Reason: mild pain)
Discharge Orders:
Discharge Patient (As Directed); Ordered 01/08/25
Ordered By: Debra Devlin
Discharge Date and Time
Print Language: UKRAINIAN
[2025-01-08 15:43] VITALS: BP 140/81
--- NOTE | 2025-01-08 16:57 | CM ---
MD indicated ready for discharge.
MD requested [facility] of Eliquis . [facility] said med is uncovered.
requested [facility] of Xarelto . [facility] said $150.00 / 3 month . Xarelto coupon for first month free given .MD and Pt informed of [facility].
[facility] consulted for substance abuse counselling. [facility] saw pt he declined need.
Pt said he was ready for dc .
He said dgt Priscilla will drive him home.
Offered VN he delcined VN .
[facility]An Home no needs
== END 2025-01-08 17:20 | disposition home or self-care (01) | DRG 292 ==
LOC: 3 WEST ACU 13:47
PROVIDERS: ADMITTING PHYSICIAN Internal Medicine; CONSULT PHYSICIAN Internal Medicine; CONSULT PHYSICIAN Internal Medicine Infectious Disease; CONSULT PHYSICIAN Surgery Vascular Surgery; EMERGENCY PHYSICIAN Student in an Organized Health Care Education/Training Program
DX: I50.31 Acute diastolic (congestive) heart failure (principal); E87.1 Hypo-osmolality and hyponatremia; I82.531 Chronic embolism and thrombosis of right popliteal vein; Z87.891 Personal history of nicotine dependence; L53.9 Erythematous condition, unspecified; I34.81 Nonrheumatic mitral (valve) annulus calcification; Z79.01 Long term (current) use of anticoagulants
CPT/HCPCS: 71275; 75635; 80048; 80053; 80061; 83036; 83735; 83880; 84443; 84484; 85025; 85027; 85610; 85730; 93005; 93306; 93922; 93925; 93971; 99285; 99406; Q9950; Q9967